=== PATIENT | female | born 1960 | race Caucasian/White ===

== ENCOUNTER → 2016-11-14 | Outpatient (CLI) | payer BC ==
[~2016-11-14] MED LIST: ASPI1TAB PO; DRIS50002 PO; LEXA1TAB PO; VITA100067 PO; VITA100T98 PO; XANA0.5T PO
--- NOTE | 2016-11-14 14:24 | REPMRS ---
Patient History The patient states she has not had a clinical breast exam in over a year. Patient has history of breast cancer at age 46. Malignant lumpectomy of the right breast, 2008. Taking tamoxifen for 4 years. Digital Mammo Diagnostic Bilateral: November 14, 2016 - Exam #: [id number] Bilateral CC and MLO view(s) were taken. Technologist: Alexa Rodriguez, Technologist Prior study comparison: October 05, 2015, digital mammo diagnostic bilateral performed at [facility]. September 08, 2014, digital mammo diagnostic bilateral performed at [facility]. August 02, 2013, digital mammo diagnostic bilateral performed at [facility]. FINDINGS: The breast tissue is heterogeneously dense. This may lower the sensitivity of mammography. There is a moderate amount of heterogeneously dense fibroglandular tissue which is fairly symmetric. There is no interval development of dominant mass, architectural distortion, or clustered microcalcification typical of malignancy. There has been no change in the appearance of the mammogram from the prior studies. ASSESSMENT: BI-RADS/ACR category 1 mammogram. Negative. Recommendation Routine screening mammogram of both breasts in 1 year (for women over age 40). This mammogram was interpreted with the aid of an FDA-approved computer-aided dectection system. Electronically Signed By: Supa Clay MD 11/14/16 0068
== END ==
LOC: M RAD 14:01
PROVIDERS: ATTEND Nurse Practitioner Family
DX: Z85.3 Personal history of malignant neoplasm of breast (principal)

== ENCOUNTER → 2017-06-06 | Outpatient (REF) | payer BC ==
[2017-06-06 12:38] LABS: ALBUMIN 4.3 GM/DL (3.2-5.2); ALBUMIN/GLOBULIN RATIO 1.54 (1.00-1.93); ALKALINE PHOSPHATASE 49 U/L (45-117); ALT/SGPT 35 U/L (12-78); ANION GAP 8 MEQ/L (8-16); AST/SGOT 20 U/L (7-37); BILIRUBIN,TOTAL 0.3 MG/DL (0.2-1.0); BLOOD UREA NITROGEN 10 MG/DL (7-18); CALCIUM LEVEL 8.9 MG/DL (8.5-10.1); CARBON DIOXIDE LEVEL 27 MEQ/L (21-32); CHLORIDE LEVEL 106 MEQ/L (98-107); CHOLESTEROL LEVEL 295 MG/DL (<200); CHOLESTEROL RISK RATIO 4.154 (<5); CREATININE FOR GFR 0.52 MG/DL (0.55-1.30); GLOMERULAR FILTRATION RATE > 60.0 (>51); GLUCOSE, FASTING 90 MG/DL (70-100); HDL CHOLESTEROL 71 MG/DL (>40); LDL CHOLESTEROL 199.4 MG/DL (<100); NON-HDL-C 224 MG/DL; POTASSIUM SERUM 4.1 MEQ/L (3.5-5.1); SODIUM LEVEL 141 MEQ/L (136-145); TOTAL PROTEIN 7.1 GM/DL (6.4-8.2); TRIGLYCERIDES LEVEL 123 MG/DL (<150)
[2017-06-06 13:47] LABS: ESTIMATED AVERAGE GLUCOSE 105 MG/DL (60-110); HEMOGLOBIN A1c 5.3 %
== END ==
LOC: M SFHCPLAZ 11:36
DX: E78.2 Mixed hyperlipidemia (principal); Z83.3 Family history of diabetes mellitus
CPT/HCPCS: 80053

== ENCOUNTER → 2017-08-23 | Outpatient (REF) | payer BC ==
[2017-08-27 00:08] LABS: Lyme Disease IgG Ab 18 kDa Ban Absent (.); Lyme Disease IgG Ab 23 kDa Ban Present (.); Lyme Disease IgG Ab 28 kDa Ban Absent (.); Lyme Disease IgG Ab 30 kDa Ban Absent (.); Lyme Disease IgG Ab 39 kDa Ban Absent (.); Lyme Disease IgG Ab 41 kDa Ban Present (.); Lyme Disease IgG Ab 45 kDa Ban Absent (.); Lyme Disease IgG Ab 58 kDa Ban Absent (.); Lyme Disease IgG Ab 66 kDa Ban Absent (.); Lyme Disease IgG Ab 93 kDa Ban Absent (.); Lyme Disease IgG West Blot Int Negative (.); Lyme Disease IgG/IgM Antibodie 1.21 ISR (0.00-0.90); Lyme Disease IgM Ab 23 kDa Ban Present (.); Lyme Disease IgM Ab 39 kDa Ban Absent (.); Lyme Disease IgM Ab 41 kDa Ban Present (.); Lyme Disease IgM Ab Quantitati 6.24 index (0.00-0.79); Lyme Disease IgM West Blot Int Positive (.)
== END ==
LOC: M SFHCPLAZ 15:41
DX: R21 Rash and other nonspecific skin eruption (principal)
CPT/HCPCS: 36415

== ENCOUNTER → 2017-11-27 | Outpatient (CLI) | payer BC | LOC: M RAD 13:12 | DX: Z12.31 Encounter for screening mammogram for malignant neoplasm of breast (principal) | CPT/HCPCS: 77067 ==

== ENCOUNTER 2018-02-01 07:42 | Outpatient (RCR) | payer BC | END 2018-02-02 | LOC: M PT 07:42 | DX: N81.6 Rectocele (principal); N81.10 Cystocele, unspecified ==

== ENCOUNTER 2018-03-01 08:00 | Outpatient (RCR) | payer BC ==
[~2018-03-01 08:00] MED LIST changes: -DRIS50002 PO; +DRIS50003 PO
== END 2018-03-05 ==
LOC: M PT 08:00
PROVIDERS: ATTEND Nurse Practitioner Family
DX: N81.6 Rectocele (principal); N81.10 Cystocele, unspecified

== ENCOUNTER → 2018-12-03 | Outpatient (CLI) | payer BC ==
[~2018-12-03] MED LIST changes: -ASPI1TAB PO; +ASPI81TA26 PO; +CHOL100029 PO
--- NOTE | 2018-12-03 10:44 | REPMRS ---
Patient History The patient states she had a clinical breast exam in 2018.Patient has history of breast cancer at age 46. Malignant lumpectomy of the right breast, 2008. Took tamoxifen for 6 years. 3D TOMOSYNTHESIS WAS PERFORMED. Digital Mammo Screening Bilat: December 03, 2018 - Exam #: [id number] Bilateral CC and MLO view(s) were taken. Technologist: Davina Claire, Technologist Prior study comparison: November 27, 2017, bilateral digital mammo screening bilat performed at [facility]. November 14, 2016, digital mammo diagnostic bilateral performed at [facility]. FINDINGS: The breast tissue is heterogeneously dense. This may lower the sensitivity of mammography. There has been no change in the appearance of the mammogram from the prior studies. There is a moderate amount of residual fibroglandular tissue which is fairly symmetric. There is no interval development of dominant mass, areas of architectural distortion, or clustered microcalcification typical of malignancy. Assessment: BI-RADS/ACR category 1 mammogram. Negative Mammogram. Recommendation Routine screening mammogram in 1 year (for women over age 40). This mammogram was interpreted with the aid of an FDA-approved computer-aided dectection system. Electronically Signed By: Alen Curry MD 12/03/18 [id number]
== END ==
LOC: M RAD 10:15
PROVIDERS: ATTEND Nurse Practitioner Family
DX: Z12.31 Encounter for screening mammogram for malignant neoplasm of breast (principal); Z85.3 Personal history of malignant neoplasm of breast

== ENCOUNTER → 2018-12-11 | Outpatient (CLI) | payer BC ==
--- NOTE | 2018-12-11 09:04 | REP ---
Duplex extremity venous ultrasound: Right lower extremity. History: Right calf pain. Rule out DVT. Findings: The deep veins are anechoic and fully compressible from the groin to the popliteal fossa in the right lower extremity. Color flow imaging is homogeneous. Spectral Doppler interrogation demonstrates intact respiratory variation in flow and normal manual augmentation of flow. There is no evidence of deep vein thrombosis. Impression: Negative right lower extremity duplex venous ultrasound. No evidence of deep vein thrombosis. Electronically Signed by Gera Clay MD 12/11/2018 08:55 A
== END ==
LOC: M RAD 08:31
PROVIDERS: ATTEND Nurse Practitioner Adult Health
DX: M79.661 Pain in right lower leg (principal)

== ENCOUNTER → 2019-04-23 | Outpatient (REF) | payer BC | LOC: M SFHCPLAZ 16:10 | PROVIDERS: ATTEND Nurse Practitioner Family | DX: E78.2 Mixed hyperlipidemia (principal); E55.9 Vitamin D deficiency, unspecified; D51.8 Other vitamin B12 deficiency anemias ==

== ENCOUNTER → 2019-04-24 | Outpatient (REF) | payer BC ==
[2019-04-24 11:39] LABS: ALBUMIN 4.2 GM/DL (3.2-5.2); ALT/SGPT 36 U/L (12-78); BILIRUBIN,TOTAL 0.3 MG/DL (0.2-1.0); BLOOD UREA NITROGEN 11 MG/DL (7-18); CALCIUM LEVEL 8.8 MG/DL (8.5-10.1); CARBON DIOXIDE LEVEL 28 MEQ/L (21-32); CHLORIDE LEVEL 105 MEQ/L (98-107); CHOLESTEROL LEVEL 310 MG/DL (<200); CHOLESTEROL RISK RATIO 4.696 (<5); CREATININE FOR GFR 0.51 MG/DL (0.55-1.30); GLOMERULAR FILTRATION RATE > 60.0 (>51); GLUCOSE, FASTING 93 MG/DL (70-100); HDL CHOLESTEROL 66 MG/DL (>40); LDL CHOLESTEROL 173 MG/DL (<100); NON-HDL-C 244 MG/DL; POTASSIUM SERUM 4.2 MEQ/L (3.5-5.1); SODIUM LEVEL 141 MEQ/L (136-145); TRIGLYCERIDES LEVEL 353 MG/DL (<150)
[2019-04-24 11:47] LABS: TOTAL 25(OH) VITAMIN D 35.4 NG/ML (30.0-100.0)
[2019-04-24 11:48] LABS: FOLATE 9.1 NG/ML; VITAMIN B12 LEVEL 549 PG/ML
== END ==
LOC: M SFHCPLAZ 07:10
PROVIDERS: ATTEND Nurse Practitioner Family
DX: E78.2 Mixed hyperlipidemia (principal); E55.9 Vitamin D deficiency, unspecified; D51.8 Other vitamin B12 deficiency anemias

== ENCOUNTER → 2019-08-20 | Outpatient (REF) | payer BC ==
[2019-08-20 09:45] LABS: BASO % 0.6 % (0.0-1.0); EOS # 0.1 10^3/uL (0.0-0.5); EOS % 2.8 % (0.0-3.0); HEMATOCRIT 40.8 % (36.0-47.0); HEMOGLOBIN 14.3 g/dl (12.0-15.5); LYMPH # 0.9 10^3/uL (1.5-5.0); LYMPH % 27.6 % (24.0-44.0); MEAN CORPUSCULAR HEMOGLOBIN 34.2 pg (27.0-33.0); MEAN CORPUSCULAR VOLUME 97.6 fl (80.0-96.0); MONO # 0.2 10^3/uL (0.0-0.8); MONO % 6.8 % (0.0-5.0); NEUTROPHILS % 61.9 % (36.0-66.0); PLATELET COUNT, AUTOMATED 176 10^3/uL (150-450); RED BLOOD COUNT 4.18 10^6/uL (4.00-5.40); WHITE BLOOD COUNT 3.2 10^3/uL (4.0-10.0)
== END ==
LOC: M SFHCPLAZ 07:26
PROVIDERS: ATTEND Nurse Practitioner Family
DX: D72.819 Decreased white blood cell count, unspecified (principal)

== ENCOUNTER → 2020-01-17 | Outpatient (CLI) | payer SELFPAY | LOC: M LABSMTC 12:05 | PROVIDERS: ATTEND Pediatrics | DX: Z20.828 Contact with and (suspected) exposure to other viral communicable diseases (principal) ==

== ENCOUNTER → 2020-02-26 | Outpatient (CLI) | payer BC ==
--- NOTE | 2020-02-26 14:05 | REPMRS ---
Patient History The patient states she had a clinical breast exam in 01/2020 Malignant lumpectomy of the right breast, 2008. Took tamoxifen for 6 years. 3D TOMOSYNTHESIS WAS PERFORMED. Kaylee breast density c . Digital Woman Screen Mammo: February 26, 2020 - Exam #: [id number] Bilateral CC and MLO view(s) were taken. Technologist: Ileana Pak, Technologist Prior study comparison: December 03, 2018, bilateral digital mammo screening bilat, performed at [facility]. November 27, 2017, bilateral digital mammo screening bilat, performed at [facility]. FINDINGS: The breast tissue is heterogeneously dense. This may lower the sensitivity of mammography. There is no evidence of cancer on this mammogram. There are stable postsurgical changes in the right breast. A biopsy clip is again seen in the posterolateral left breast. No significant changes when compared with prior studies. Assessment: BI-RADS/ACR category 2 mammogram. Benign Findings. Recommendation Routine screening mammogram of both breasts in 1 year (for women over age 40). This mammogram was interpreted with the aid of an FDA-approved computer-aided dectection system. Electronically Signed By: Alen Curry MD 02/26/20 [id number]
== END ==
LOC: M WHC 13:21
PROVIDERS: ATTEND Nurse Practitioner Family
DX: Z12.31 Encounter for screening mammogram for malignant neoplasm of breast (principal)

== ENCOUNTER → 2020-05-26 | Outpatient (REF) | LOC: M LABSMTC 12:26 | PROVIDERS: ATTEND Pediatrics | DX: Z11.52 Encounter for screening for COVID-19 (principal) ==

== ENCOUNTER → 2020-06-02 | Outpatient (CLI) | payer BC ==
--- NOTE | 2020-06-02 13:34 | REPPI ---
INDICATION: RIGHT SIDE CHEST PAIN. COMPARISON: X-ray right shoulder 05/28/2011, PA chest 05/14/2007. TECHNIQUE: PA chest and 4 dedicated right rib images. FINDINGS: PA chest: Lungs are well inflated. Soft tissue a density or pleural subpleural lesion mid lateral lower chest on the right not seen on the previous chest x-ray. Right-sided axillary surgical clips as on the previous shoulder series in 2012. Lung candelario are well inflated without infiltrate, pleural effusion, pneumothorax or pneumomediastinum. Subtle about cortical irregularity of the lateral right 7th rib is noted. Heart mediastinal contours normal. Spine without acute finding. Right ribs: Widening of the AC joint elevation of the clavicle indicative of prior grade 3 AC joint separation. Spurring at the insertion of the coracoclavicular ligament on the coracoid. There is heterotopic bone or old avulsions adjacent to the distal clavicle not present on radiograph 9 years ago. However these are well corticated and not acute. Minor degenerative spurring inferior margin of the glenoid. The rib images show posterolateral 8th and lateral 7th rib fractures which appear acute to subacute at the site of the soft tissue density on the PA chest representing adjacent subpleural hematoma. No other rib fractures or focal lesion. IMPRESSION: 1. Status post right lateral 7th and posterolateral 8th rib fractures with minimal cortical a disruption and adjacent to subpleural a density representing hematoma in the right lateral chest. No other acute rib findings. No pneumothorax or effusion. 2. 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 There are 2 ossific densities adjacent that were not present on the radiograph 9 years ago. These are well corticated and suggest old chronic findings, may be old avulsions from the distal clavicle or heterotopic bone. There is also some spurring at the insertion of the coracoclavicular ligament. <Electronically signed by Godfrey Russ > 06/02/20 [id number]
== END ==
LOC: M PLAIMG 12:56
PROVIDERS: ATTEND Nurse Practitioner Family
DX: S40.021D Contusion of right upper arm, subsequent encounter (principal); S22.41XD Multiple fractures of ribs, right side, subsequent encounter for fracture with routine healing

== ENCOUNTER → 2020-06-09 | Outpatient (REF) | payer BC | LOC: M LAB REF 17:13 | PROVIDERS: ATTEND Family Medicine | DX: L57.0 Actinic keratosis (principal) ==

== ENCOUNTER → 2021-03-03 | Outpatient (CLI) | payer BC ==
--- NOTE | 2021-03-03 08:50 | REPMRS ---
Patient History The patient states she has not had a clinical breast exam in over a year. Patient has history of breast cancer at age 46. Malignant lumpectomy of the right breast, 2008. Benign stereotactic core biopsy of the left breast. Took tamoxifen for 6 years. Tomosynthesis is performed. Volpara breast density is c. Patient states no breast complaints today. Patient has signed MRS History Sheet. Digital Woman Screen Mammo: March 03, 2021 - Exam #: [id number] Bilateral CC and MLO view(s) were taken. Technologist: Ileana Pak, Technologist Prior study comparison: February 26, 2020, bilateral digital woman screen mammo performed at [facility] and [facility]. December 03, 2018, bilateral digital mammo screening bilat, performed at [facility]. FINDINGS: The breast tissue is heterogeneously dense. This may lower the sensitivity of mammography. There is a fairly symmetric fibroglandular pattern in both breasts. There has been no interval development of masses, areas of architectural distortion or clusters of microcalcifications typical of malignancy. There are stable postsurgical changes of the right breast. No significant changes when compared with prior studies. Assessment: BI-RADS/ACR category 2 mammogram. Benign Findings. Recommendation Routine screening mammogram of both breasts in 1 year (for women over age 40). This mammogram was interpreted with the aid of an FDA-approved computer-aided dectection system. Electronically Signed By: Alen Curry MD 03/03/21 0849
== END ==
LOC: M WHC 07:15
PROVIDERS: ATTEND Nurse Practitioner Adult Health
DX: Z12.31 Encounter for screening mammogram for malignant neoplasm of breast (principal); Z85.3 Personal history of malignant neoplasm of breast

== ENCOUNTER → 2021-05-26 | Outpatient (REF) | LOC: M LABSMTC 09:40 | PROVIDERS: ATTEND Family Medicine | DX: Z11.52 Encounter for screening for COVID-19 (principal) ==

== ENCOUNTER → 2021-08-20 | Outpatient (CLI) | payer BC ==
[2021-08-20 10:12] LABS: BASO % 1.2 % (0.0-1.0); EOS # 0.1 10^3/uL (0.0-0.5); EOS % 5.5 % (0.0-3.0); HEMATOCRIT 39.8 % (36.0-47.0); HEMOGLOBIN 13.6 g/dl (12.0-15.5); MEAN CORPUSCULAR HGB CONC 34.2 g/dl (32.0-36.5); MEAN CORPUSCULAR VOLUME 96.6 fl (80.0-96.0); MONO # 0.2 10^3/uL (0.0-0.8); MONO % 7.5 % (2.0-8.0); NEUTROPHILS # 1.2 10^3/uL (1.5-8.5); NEUTROPHILS % 47.4 % (36.0-66.0); PLATELET COUNT, AUTOMATED 183 10^3/uL (150-450); RED BLOOD COUNT 4.12 10^6/uL (4.00-5.40); WHITE BLOOD COUNT 2.6 10^3/uL (4.0-10.0)
[2021-08-20 10:26] LABS: ALBUMIN 4.1 GM/DL (3.2-5.2); ALT/SGPT 48 U/L (12-78); BILIRUBIN,TOTAL 0.4 MG/DL (0.2-1.0); BLOOD UREA NITROGEN 9 MG/DL (7-18); CALCIUM LEVEL 9.4 MG/DL (8.5-10.1); CARBON DIOXIDE LEVEL 27 MEQ/L (21-32); CHLORIDE LEVEL 108 MEQ/L (98-107); CHOLESTEROL LEVEL 305 MG/DL (<200); CREATININE FOR GFR 0.55 MG/DL (0.55-1.30); FREE T4 0.76 NG/DL (0.76-1.46); GLOMERULAR FILTRATION RATE > 60.0 (>51); GLUCOSE, FASTING 92 MG/DL (70-100); HDL CHOLESTEROL 61 MG/DL (>40); LDL CHOLESTEROL 195 MG/DL (<100); NON-HDL-C 244 MG/DL; POTASSIUM SERUM 3.8 MEQ/L (3.5-5.1); SODIUM LEVEL 143 MEQ/L (136-145); TOTAL PROTEIN 6.7 GM/DL (6.4-8.2); TRIGLYCERIDES LEVEL 246 MG/DL (<150)
[2021-08-20 10:28] LABS: TOTAL 25(OH) VITAMIN D 33.5 NG/ML (30.0-100.0)
== END ==
LOC: M PLALAB 06:58
PROVIDERS: ATTEND Nurse Practitioner Adult Health
DX: E78.2 Mixed hyperlipidemia (principal); E55.9 Vitamin D deficiency, unspecified; D72.819 Decreased white blood cell count, unspecified

== ENCOUNTER → 2022-02-19 | Outpatient (CLI) | payer BC | LOC: M WHC 20:49 | PROVIDERS: ATTEND Nurse Practitioner Adult Health | DX: Z12.31 Encounter for screening mammogram for malignant neoplasm of breast (principal); Z53.9 Procedure and treatment not carried out, unspecified reason ==

== ENCOUNTER → 2022-03-08 | Outpatient (CLI) | payer BC | LOC: M WHC 16:13 | PROVIDERS: ATTEND Nurse Practitioner Adult Health | DX: Z12.31 Encounter for screening mammogram for malignant neoplasm of breast (principal) ==

== ENCOUNTER → 2023-02-09 | Outpatient (REF) | LOC: M EMP 12:08 | PROVIDERS: ATTEND Family Medicine | DX: Z11.52 Encounter for screening for COVID-19 (principal) ==

== ENCOUNTER → 2023-03-13 | Outpatient (CLI) | payer BC | LOC: M WHC 12:16 | PROVIDERS: ATTEND Nurse Practitioner Adult Health | DX: Z12.31 Encounter for screening mammogram for malignant neoplasm of breast (principal) ==

== ENCOUNTER → 2023-03-21 | Outpatient (CLI) | payer BC ==
[2023-03-21 14:26] LABS: ALBUMIN 4.3 G/DL (3.2-5.2); ALKALINE PHOSPHATASE 50 U/L (46-116); ALT/SGPT 31 U/L (7.0-40); AST/SGOT 26 U/L (<34); BILIRUBIN,TOTAL 0.6 MG/DL (0.3-1.2); BLOOD UREA NITROGEN 14 MG/DL (9-23); CALCIUM LEVEL 8.9 MG/DL (8.3-10.6); CARBON DIOXIDE LEVEL 27 MMOL/L (20-31); CHLORIDE LEVEL 104 MMOL/L (98-107); CREATININE FOR GFR 0.55 MG/DL (0.55-1.30); GLOMERULAR FILTRATION RATE > 60.0 (>45); GLUCOSE, FASTING 113 MG/DL (74-106); IRON (FE) 115 UG/DL (50-170); PERCENT SATURATION 39.8 % (13.2-45.0); SODIUM LEVEL 139 MMOL/L (136-145); TOTAL IRON BINDING CAPACITY 289 UG/DL (250-425); TOTAL PROTEIN 6.7 G/DL (5.7-8.2)
[2023-03-21 14:27] LABS: HEMATOCRIT 41.3 % (36.0-47.0); HEMOGLOBIN 13.8 g/dl (12.0-15.5); MEAN CORPUSCULAR HEMOGLOBIN 32.9 pg (27.0-33.0); MEAN CORPUSCULAR HGB CONC 33.4 g/dl (32.0-36.5); MEAN CORPUSCULAR VOLUME 98.6 fl (80.0-96.0); PLATELET COUNT, AUTOMATED 148 10^3/uL (150-450); RED BLOOD COUNT 4.19 10^6/uL (4.00-5.40); WHITE BLOOD COUNT 4.1 10^3/uL (4.0-10.0)
[2023-03-21 14:29] LABS: FERRITIN 133.3 NG/ML (7.3-270.7)
== END ==
LOC: M PLAIMG 09:01
PROVIDERS: ATTEND Nurse Practitioner Adult Health
DX: K62.5 Hemorrhage of anus and rectum (principal)

== ENCOUNTER → 2023-03-22 | Outpatient (CLI) | payer BC ==
[2023-03-22 11:18] LABS: INR 1.01; PARTIAL THROMBOPLASTIN TIME 28.6 SECONDS (24.8-34.2)
== END ==
LOC: M PLALAB 07:28
PROVIDERS: ATTEND Nurse Practitioner Adult Health
DX: K62.5 Hemorrhage of anus and rectum (principal)

== ENCOUNTER → 2024-03-21 | Outpatient (CLI) | payer BC | LOC: M WHC 13:10 | PROVIDERS: ATTEND Nurse Practitioner Adult Health | DX: Z12.31 Encounter for screening mammogram for malignant neoplasm of breast (principal); Z85.3 Personal history of malignant neoplasm of breast; R92.333 Mammographic heterogeneous density, bilateral breasts ==